=== PATIENT | female | born 1960 | race Caucasian/White ===

== ENCOUNTER 2022-11-26 07:01 | Day surgery (SDC) | payer SELFPAY ==
[~2022-11-26] VITALS: Ht 170.2 cm; Wt 77.1 kg
[~2022-11-26 07:01] MED LIST: ACETAZOLAMIDE250 MG PO; ALPRAZOLAM0.25 M1 PO; ESTRACE0.5 MG PO; PROVENTIL HFA108 MCG; ZOLPIDEM5 M1 PO
[2022-11-26 09:42] VITALS: BP 129/74
== END 2022-11-26 10:02 | disposition home or self-care (01) | DRG 379 ==
LOC: ENDO 07:01 → ORM 10:30 → ENDO 10:30 → ORM 12:00
PROVIDERS: ATTEND Surgery
PROC: 0DJD8ZZ Inspection of Lower Intestinal Tract, Via Natural or Artificial Opening Endoscopic (ICD-10-PCS; principal; 2022-11-26)
DX: K57.31 Diverticulosis of large intestine without perforation or abscess with bleeding (principal); K64.8 Other hemorrhoids; Z80.0 Family history of malignant neoplasm of digestive organs